=== PATIENT | male | born 1955 | race American Indian/Alaskan Native ===

== ENCOUNTER 2017-10-20 16:52 | Emergency (ER) | payer SELFPAY ==
[2017-10-20 18:00] VITALS: BP 151/86
--- NOTE | 2017-10-20 18:37 | Emergency Department Report ---
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 He reports that he is having an toenail problem along with problems with wearing the shoes and he is requesting that usually has his groin shaved down. Patient denies any pain to his toe. He reports that his toenail is shaky. Patient said he is traveling from [place] to [facility] and he had a relapse and use of a large for recovery. No other complaints. ED Past Medical Hx - Past Medical History Previous Medical History?: No - Surgical History Past Surgical History?: Yes Additional Surgical History: hernia repair - Family History Family history: no significant - Social History Smoking Status: Current Every Day Smoker Substance Use Type: None ED Review of Systems ROS: Stated complaint: TOE PAIN Other details as noted in HPI Comment: All other systems reviewed and negative Constitutional: no symptoms reported Respiratory: no symptoms reported Cardiovascular: denies: chest pain, palpitations, dyspnea on exertion, edema, syncope, paroxysmal nocturnal dyspnea Musculoskeletal: other (patient reports that he has toe pain and triage but denies any pain in ED room.). denies: back pain, joint swelling, arthralgia Skin: change in hair/nails. denies: rash Neurological: denies: headache Physical Exam - Physical Exam Vital Signs: Vital Signs 10/20/17 17:57 Temperature 98.7 F Pulse Rate 72 Respiratory 16 Rate Blood Pressure 151/86 O2 Sat by Pulse 100 Oximetry General: 62-year-old male well-nourished well-developed in no acute distress Physical Exam: Neck: Range of motion, no C-spine tenderness. Negative lymph nodes Lungs: Clear to auscultate bilaterally, no rhonchi wheezes or rales. CV: S1, S2. Regular rate and rhythm. Extremity: Clubbing, cyanosis or edema. +2 pulses all extremities. No neurovascular compromise. Nailbed is intact to all extremities. Capillary refill is less than 3 seconds. Patient with quadrants to multiple toes. Right great toe nontender to palpate. Musculoskeletal: +5 strength in all extremities, ambulates without any difficulties. Skin: Clean, dry, intact. No rashes or lesions.. ED Course Vital Signs 10/20/17 17:57 Temperature 98.7 F Pulse Rate 72 Respiratory 16 Rate Blood Pressure 151/86 O2 Sat by Pulse 100 Oximetry - Reevaluation(s) Reevaluation #1: 10/20/17 19:06 Pt stable throughout ED course. He requested postop shoe and it was given to him. ED Medical Decision Making - Medical Decision Making ED course: She here reports that he has issues with his right great toe after injury 8 months ago. Physical findings for normal exam extremity and musculoskeletal except patient has Corns and bunions. 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 He agrees. Patient requested. She was therefore he was given 2 shoe. Patient discharged home in stable condition to follow up with podiatry. Critical care attestation.: If time is entered above; I have spent that time in minutes in the direct care of this critically ill patient, excluding procedure time. ED Disposition Clinical Impression: Corns and callosities Disposition: DC-01 TO HOME OR SELFCARE Is pt being admited?: No Does the pt Need Aspirin: No Condition: Stable Instructions: How to Give a Foot Massage (GEN) Additional Instructions: You have corns and calluses and will need to follow up with a foot doctor for evaluation and treatment. You use postop shoe as requested anterior able to get your feet taking care of. Referrals: ISAÍAS MARINO DPM [Staff Physician] - 3-5 Days
== END 2017-10-20 19:25 | disposition home or self-care (01) ==
LOC: ED 16:52
DX: L84 Corns and callosities (principal); F17.200 Nicotine dependence, unspecified, uncomplicated
CPT/HCPCS: 99282

== ENCOUNTER 2017-11-02 08:47 | Emergency (ER) | payer MEDICARE, MEDICAID ==
[2017-11-02 09:10] VITALS: BP 130/85
[2017-11-02 09:46] LABS: Hematocrit 39.9 % (35.5-45.6); Hemoglobin 13.5 gm/dl (11.8-15.2); Mean Corpuscular HGB Conc 34 % (32-34); Mean Corpuscular Hemoglobin 32 pg (28-32); Mean Corpuscular Volume 95 fl (84-94); Platelet Count 138 K/mm3 (140-440); Red Blood Count 4.21 M/mm3 (3.65-5.03); Red Cell Distribution Width 13.7 % (13.2-15.2)
[2017-11-02 09:53] LABS: BUN/Creatinine Ratio 8; Blood Urea Nitrogen 9 mg/dL (9-20); Calcium 8.2 mg/dL (8.4-10.2); Hemolysis Index 27
[2017-11-02 10:53] LABS: Band Neutrophils # (Manual) 0.1 K/mm3; Basophils % (Manual) 0 % (0.0-1.8); Eosinophils % (Manual) 0 % (0.0-4.3); RBC Morphology Normal; Total Cells Counted 100
[2017-11-02 10:54] LABS: Platelet Estimate Consistent w Auto
--- NOTE | 2017-11-02 11:43 | Emergency Department Report ---
Minor Respiratory - HPI Chief Complaint: Chest Pain Stated Complaint: CHEST PAIN Time Seen by Provider: 11/02/17 11:35 Duration: 3 Days Minor Respiratory: Yes Cough (patient is a undergoing drug treatment but has been coughing for the past 3 days. The cough is productive of clear sputum. Patient denies any other symptoms at this time), Yes Sick Contacts, Yes Chest Pain (with cough only), No Rhinorrhea, No Sore Throat, No Able to Tolerate Fluids, No Ear Pain, No Hemoptysis, No Shortness of Breath, No Fever ED Review of Systems ROS: Stated complaint: CHEST PAIN Other details as noted in HPI Comment: Unobtainable due to pts medical conditions ED Past Medical Hx - Past Medical History Previous Medical History?: Yes Hx Hypertension: Yes Hx Psychiatric Treatment: Yes (drug use) - Surgical History Past Surgical History?: Yes Additional Surgical History: abd hernia repair - Social History Smoking Status: Current Every Day Smoker Substance Use Type: Prescribed - Medications Home Medications: Home Medications Medication Instructions Recorded Confirmed Last Taken Type Benzonatate [Tessalon Perle] 100 mg PO TID #10 capsule 11/02/17 Unknown Rx Doxycycline [Vibramycin CAP] 100 mg PO Q12HR #14 capsule 11/02/17 Unknown Rx predniSONE [Deltasone] 20 mg PO QDAY 5 Days tab 11/02/17 Unknown Rx Minor Respiratory Exam - Exam General: Vital signs noted. No distress. Alert and acting appropriately. HEENT: Yes Moist Mucous Membranes, No Pharyngeal Erythema, No Pharyngeal Exudates, No Rhinorrhea, No Conjuctival Injection, No Frontal Tenderness, No Maxillary Tenderness Ear: Neither TM Bulge, Neither TM Erythema, Neither EAC Pain, Neither EAC Discharge Neck: Yes Supple, No Adenopathy Lungs: Yes Good Air Exchange, No Wheezes, No Ronchi, No Stridor, No Cough, No Labored Respirations, No Retractions, No Use of Accessory Muscles, No Other Abnormal Lung Sounds Heart: Yes Regular, No Murmur Abdomen: Yes Normal Bowel Sounds, No Tenderness, No Peritoneal Signs Skin: No Rash, No Edema Neurologic: Alert and oriented, no deficits. Musculoskeletal: Unremarkable. ED Course Vital Signs 11/02/17 09:06 Temperature 97.8 F Pulse Rate 81 Respiratory 18 Rate Blood Pressure 130/85 O2 Sat by Pulse 95 Oximetry ED Medical Decision Making - Lab Data Result diagrams: 11/02/17 09:24 11/02/17 09:21 - Radiology Data Radiology results: image reviewed Within normal limits - Medical Decision Making Patient 8-year-old -[place] male who is presenting with cough, congestion. Patient will be started on doxycycline and Tessalon be discharged home Critical care attestation.: If time is entered above; I have spent that time in minutes in the direct care of this critically ill patient, excluding procedure time. ED Disposition Clinical Impression: Acute bronchitis Qualifiers: Bronchitis organism: unspecified organism Qualified Code(s): J20.9 - Acute bronchitis, unspecified Disposition: DC- TO HOME OR SELFCARE Is pt being admited?: No Does the pt Need Aspirin: No Condition: Stable Instructions: Acute Bronchitis (ED) Prescriptions: Benzonatate [Tessalon Perle] 100 mg PO TID #10 capsule Doxycycline [Vibramycin CAP] 100 mg PO Q12HR #14 capsule predniSONE [Deltasone] 20 mg PO QDAY 5 Days tab Referrals: PRIMARY CARE, [Primary Care Provider] - 3-5 Days
--- NOTE | 2017-11-02 11:47 | XRay Report ---
ROUTINE CHEST, TWO VIEWS: Cough. PA and lateral views demonstrate the heart and mediastinal contour to be of normal size and shape. The lungs are clear and fully expanded and the soft tissues and bony structures are normal. IMPRESSION: Normal study.
== END 2017-11-02 11:49 | disposition home or self-care (01) ==
LOC: ED 08:47
DX: J20.9 Acute bronchitis, unspecified (principal); I10 Essential (primary) hypertension; F17.200 Nicotine dependence, unspecified, uncomplicated
CPT/HCPCS: 36415; 71046; 80048; 84484; 85007; 85025; 93005; 93010; 99284

== ENCOUNTER 2017-11-03 03:12 | Emergency (ER) | payer MEDICARE ==
[2017-11-03] MEDS ORDERED: ASPIRIN PO ONE (03:48)
--- NOTE | 2017-11-03 04:28 | XRay Report ---
FINAL REPORT EXAM: XR CHEST ROUTINE 2V HISTORY: Shortness of breath TECHNIQUE: PA and lateral chest radiographs PRIORS: None. FINDINGS: No mediastinal shift. Cardiac silhouette is not enlarged. No pneumothorax, effusion, or focal pulmonary opacity. No acute skeletal finding. IMPRESSION: No focal pulmonary opacity.
[2017-11-03 04:32] LABS: Basophils % (Auto) 0.5 % (0.0-1.8); Eosinophils % (Auto) 0.1 % (0.0-4.3); Hemoglobin 14.3 gm/dl (11.8-15.2); Lymphocytes # (Auto) 0.9 K/mm3 (1.2-5.4); Lymphocytes % (Auto) 23.9 % (13.4-35.0); Mean Corpuscular HGB Conc 35 % (32-34); Mean Corpuscular Hemoglobin 33 pg (28-32); Mean Corpuscular Volume 95 fl (84-94); Monocytes # (Auto) 0.4 K/mm3 (0.0-0.8); Monocytes % (Auto) 10.8 % (0.0-7.3); Platelet Count 145 K/mm3 (140-440); Red Blood Count 4.32 M/mm3 (3.65-5.03); Red Cell Distribution Width 13.7 % (13.2-15.2)
[2017-11-03 04:41] LABS: BUN/Creatinine Ratio 10; Blood Urea Nitrogen 10 mg/dL (9-20); Calcium 8.4 mg/dL (8.4-10.2); Hemolysis Index 60
[2017-11-03 07:03] LABS: Bilirubin,Urine NEG (Negative); Blood,Urine NEG (Negative); Color,Urine Yellow (Yellow); Mucus,Urine FEW /HPF; Nitrite,Urine NEG (Negative); Protein,Urine <15 mg/dL mg/dL (Negative); Sperm,Urine 1+ /HPF (NP); Urobilinogen,Urine < 2.0 mg/dL (<2.0)
[2017-11-03] MEDS ORDERED: CLARITIN PO ONE (17:32)
--- NOTE | 2017-11-03 17:38 | Emergency Department Report ---
HPI - General Chief Complaint: Chest Pain Time Seen by Provider: 11/03/17 17:25 - HPI HPI: Room 18 Patient is a 62-year-old male presenting with chief complaint of cough and sneezing. The patient states for the past 4 days he's had a cough productive of white sputum in addition to sneezing and rhinorrhea. The patient states he suffers from allergies but does not have any medication for this currently. Patient is to subjective fever but states that there are other people are sick at the same facility he is at. Patient states he has had chest pain only when he coughs. Location: Lungs, head, see above Duration: 4 days Quality: Soreness Severity: Moderate Modifying factors: [see above] Context: [see above] Mode of transportation: Unknown ED Past Medical Hx - Past Medical History Previous Medical History?: Yes Hx Hypertension: Yes Hx Psychiatric Treatment: Yes (drug use) - Surgical History Past Surgical History?: Yes Additional Surgical History: abd hernia repair - Family History Family history: no significant - Social History Smoking Status: Current Every Day Smoker (1/2 pack per day) Substance Use Type: None (denies illicit drug use) - Medications Home Medications: Home Medications Medication Instructions Recorded Confirmed Last Taken Type Benzonatate [Tessalon Perle] 100 mg PO TID #10 capsule 11/02/17 Unknown Rx Doxycycline [Vibramycin CAP] 100 mg PO Q12HR #14 capsule 11/02/17 Unknown Rx predniSONE [Deltasone] 20 mg PO QDAY 5 Days tab 11/02/17 Unknown Rx ALBUTEROL Inhaler [Proair] 2 puff IH QID PRN #1 inhalation 11/03/17 Unknown Rx Azithromycin [Zithromax Z-MELODY] 0 mg PO DAILY #6 tab 11/03/17 Unknown Rx Benzonatate [Tessalon Perle] 100 mg PO TID PRN #30 capsule 11/03/17 Unknown Rx Loratadine [Claritin] 10 mg PO DAILY #20 tablet 11/03/17 Unknown Rx Oseltamivir [Tamiflu] 75 mg PO BID #10 cap 11/03/17 Unknown Rx ED Review of Systems ROS: Stated complaint: CP Other details as noted in HPI Constitutional: fever (subjective) ENT: congestion, other (rhinorrhea) Respiratory: cough Physical Exam - Physical Exam Vital Signs: Vital Signs 11/03/17 03:40 Temperature 97.8 F Pulse Rate 74 Respiratory 20 Rate Blood Pressure 140/90 O2 Sat by Pulse 95 Oximetry Physical Exam: GENERAL: The patient is well-developed well-nourished male lying on stretcher not appearing to be in acute distress. [] HEENT: Normocephalic. Atraumatic. Extraocular motions are intact. Patient has moist mucous membranes. NECK: Supple. No meningitic signs are noted. Trachea midline CHEST/LUNGS: Clear to auscultation. There is no respiratory distress noted. HEART/CARDIOVASCULAR: Regular. There is no tachycardia. There is no gallop rub or murmur. ABDOMEN: Abdomen is soft, nontender. Patient has normal bowel sounds. There is no abdominal distention. SKIN: There is no rash. There is no edema. There is no diaphoresis. NEURO: The patient is awake, alert, and oriented. The patient is cooperative. The patient has normal speech MUSCULOSKELETAL: There is no evidence of acute injury. ED Course Vital Signs 11/03/17 03:40 Temperature 97.8 F Pulse Rate 74 Respiratory 20 Rate Blood Pressure 140/90 O2 Sat by Pulse 95 Oximetry ED Medical Decision Making - Lab Data Result diagrams: 11/03/17 03:52 11/03/17 03:52 Laboratory Tests 11/03/17 11/03/17 11/03/17 03:52 03:52 04:35 WBC 3.6 L RBC 4.32 Hgb 14.3 Hct 41.0 MCV 95 H MCH 33 H MCHC 35 H RDW 13.7 Plt Count 145 Lymph % (Auto) 23.9 [place] % (Auto) 10.8 H Eos % (Auto) 0.1 Baso % (Auto) 0.5 Lymph # 0.9 L [place] # 0.4 Eos # 0.0 Baso # 0.0 Seg Neutrophils % 64.7 Seg Neutrophils # 2.3 Sodium 140 Potassium 4.1 Chloride 102.8 Carbon Dioxide 22 Anion Gap 19 BUN 10 Creatinine 1.0 Estimated GFR > 60 BUN/Creatinine Ratio 10 Glucose 110 H Calcium 8.4 Troponin T < 0.010 Urine Color Yellow Urine Turbidity Clear Urine pH 6.0 Ur Specific [place] 1.011 Urine Protein <15 mg/dl Urine Glucose (UA) Neg Urine Ketones Neg Urine Blood Neg Urine Nitrite Neg Urine Bilirubin Neg Urine Urobilinogen < 2.0 Ur Leukocyte Esterase Neg Urine WBC (Auto) 1.0 Urine RBC (Auto) 1.0 U Epithel Cells (Auto) < 1.0 Urine Mucus Few Urine Sperm 1+ 11/03/17 11/03/17 08:20 09:48 WBC RBC Hgb Hct MCV MCH MCHC RDW Plt Count Lymph % (Auto) [place] % (Auto) Eos % (Auto) Baso % (Auto) Lymph # [place] # Eos # Baso # Seg Neutrophils % Seg Neutrophils # Sodium Potassium Chloride Carbon Dioxide Anion Gap BUN Creatinine Estimated GFR BUN/Creatinine Ratio Glucose Calcium Troponin T < 0.010 < 0.010 Urine Color Urine Turbidity Urine pH Ur Specific [place] Urine Protein Urine Glucose (UA) Urine Ketones Urine Blood Urine Nitrite Urine Bilirubin Urine Urobilinogen Ur Leukocyte Esterase Urine WBC (Auto) Urine RBC (Auto) U Epithel Cells (Auto) Urine Mucus Urine Sperm - EKG Data -: EKG Interpreted by Me EKG shows normal: sinus rhythm Rate: normal - EKG Data When compared to previous EKG there are: no significant change Interpretation: unchanged when compared t (11/02/2017), nonspecific ST-T wave ghazal - Medical Decision Making I will treat the patient empirically for influenza as he is staying in a facility with other patients/residents with similar symptoms. Given his smoking history I will also cover with antibiotic therapy - Differential Diagnosis sinusitis, influenza, bronchitis Critical care attestation.: If time is entered above; I have spent that time in minutes in the direct care of this critically ill patient, excluding procedure time. ED Disposition Clinical Impression: Acute bronchitis Disposition: DC-01 TO HOME OR SELFCARE Is pt being admited?: No Does the pt Need Aspirin: No Condition: Stable Instructions: Acute Bronchitis (ED) Additional Instructions: Return to the emergency department immediately should you develop worsening symptoms, fever, inability to tolerate food or liquid or any other concerns. Prescriptions: ALBUTEROL Inhaler [Proair] 2 puff IH QID PRN #1 inhalation PRN Reason: Shortness Of Breath Azithromycin [Zithromax Z-MELODY] 0 mg PO DAILY #6 tab Benzonatate [Tessalon Perle] 100 mg PO TID PRN #30 capsule PRN Reason: Cough Loratadine [Claritin] 10 mg PO DAILY #20 tablet Oseltamivir [Tamiflu] 75 mg PO BID #10 cap Referrals: SILVINA TAVERAS MD [Other] - 3-5 Days Time of Disposition: 17:42
[2017-11-03 18:15] VITALS: BP 156/89
== END 2017-11-03 18:23 | disposition home or self-care (01) ==
LOC: ED 03:12
DX: J20.9 Acute bronchitis, unspecified (principal); I10 Essential (primary) hypertension; F17.200 Nicotine dependence, unspecified, uncomplicated
CPT/HCPCS: 36415; 71046; 80048; 81001; 84484; 85025; 93005; 93010; 99284